=== PATIENT | female | born 1945 | race Caucasian/White ===

== ENCOUNTER 2017-03-04 11:49 | Emergency (ER) | payer MEDICARE, BC ==
[2017-03-04] MEDS ORDERED: Lidocaine/Epineph/Tetraca SOL* (LET solution) 4 ML BTL TOPICAL ONE (12:06)
--- NOTE | 2017-03-04 12:06 | UC ---
Skin Complaint HPI - HPI Summary HPI Summary: 71 year old female presents with complains of right anterior carmichael insect bite. - History of Current Complaint Chief Complaint: UCWounds Time Seen by Provider: 03/04/17 12:03 Stated Complaint: LUMP ON LEG Hx Last Menstrual Period: N/A - Allergy/Home Medications Allergies/Adverse Reactions: Allergies Allergy/AdvReac Type Severity Reaction Status Date / Time No Known Allergies Allergy Verified 03/04/17 11:59 Review of Systems Constitutional: Negative Skin: Rash Eyes: Negative ENT: Negative Respiratory: Negative Cardiovascular: Negative Gastrointestinal: Negative Genitourinary: Negative Motor: Negative Neurovascular: Negative Musculoskeletal: Negative Neurological: Negative Psychological: Negative All Other Systems Reviewed And Are Negative: Yes PMH/Surg Hx/FS Hx/Imm Hx Previously Healthy: Yes Other History Of: Negative For: HIV, Hepatitis B, Hepatitis C, Anticoagulant Therapy - Surgical History Surgical History: Yes Surgery Procedure, Year, and Place: hysterectomy, left side lump - Family History Known Family History: Negative: Cardiac Disease, Hypertension, Diabetes - Social History Alcohol Use: Rare Substance Use Type: None Smoking Status (MU): Never Smoked Tobacco Physical Exam Triage Information Reviewed: Yes Vital Signs: Initial Vital Signs Temp 37.0 C 03/04/17 11:56 Pulse 80 03/04/17 11:56 Resp 18 03/04/17 11:56 BP 147/91 03/04/17 11:56 Pulse Ox 98 03/04/17 11:56 Eye Exam: Normal ENT Exam: Normal Dental Exam: Normal Neck exam: Normal Neck: Positive: 1 Respiratory Exam: Normal Cardiovascular Exam: Normal Abdominal Exam: Normal Musculoskeletal Exam: Normal Neurological Exam: Normal Psychological Exam: Normal Skin Exam: Normal - right anterior carmichael Skin: Positive: rashes Course/Dx - Diagnoses Provider Diagnoses: insect bite right anterior carmichael Discharge - Discharge Plan Condition: Stable Disposition: HOME Prescriptions: DOXYcycline CAP(*) [DOXYcycline 100MG CAP(*)] 100 mg PO BID #56 cap Mupirocin 2% OINT* [Bactroban 2 % Oint*] 1 applic TOPICAL BID #1 tube Patient Education Materials: Lyme Disease (ED), Tick Bite (ED) Referrals: Aide Redman MD [Primary Care Provider] - If Needed
[2017-03-04 12:09] VITALS: BP 147/91
--- NOTE | 2017-03-06 08:25 | UC ---
Progress - Progress Note Progress Note: please inform pt of neg test for lyme. this first test does not rule out lyme. please continue meds and f/u with pcp for recheck in 7-14 days.
== END 2017-03-04 12:38 | disposition home or self-care (01) ==
LOC: UCEAST 11:49
DX: S80.861A Insect bite (nonvenomous), right lower leg, initial encounter (principal); W57.XXXA Bitten or stung by nonvenomous insect and other nonvenomous arthropods, initial encounter; Y93.9 Activity, unspecified; Y92.9 Unspecified place or not applicable
CPT/HCPCS: 86618; 99212; G0463

== ENCOUNTER 2018-09-05 07:47 | Day surgery (SDC) | payer MEDICARE, BC ==
[~2018-09-05 07:47] MED LIST: Buffered Lidocaine 1% SYRIN* 1 ML/SYRINGE INTRADERM ONE; Dexamethasone IV* 4 MG/ML 1 ML (4 MG) IV SLOW PU ONE; Dexamethasone IV* 4 MG/ML 1 ML (4 MG) ONE; Famotidine IV* 10 MG/ML 2 ML (20 mg) IV ONE; Famotidine IV* 10 MG/ML 2 ML (20 mg) ONE; HYDROcodone/ACETAMIN 5-325 MG* 1 TAB PO PRN; Ketorolac INJ* 30 MG/ML 1 ML VIAL IV PRN; Lactated Ringers 1000 ML Bag* 1,000 ML IV SCH; Lidocaine 1% INJ* 10 MG/ML 30 ML SDV ONE; Naloxone* 0.4 MG/ML 1 ML VIAL IV PRN; Ondansetron INJ* 2 MG/ML VIAL IV PRN; fentaNYL* 50 MCG/ML 2 ML VIAL (100 MCG VIAL) IV PRN
[2018-09-05] MEDS ORDERED: Midazolam* 1 MG/ML 2 ML VIAL (2 MG) ONE (09:35)
[2018-09-05] MEDS ORDERED: fentaNYL* 50 MCG/ML 2 ML VIAL (100 MCG VIAL) ONE (09:35)
[2018-09-05] MEDS ORDERED: Propofol* 10 MG/ML 20 ML BTL ONE (09:36)
[2018-09-05] MEDS ORDERED: Lidocaine 2% PF * 5 ML VIAL ONE (09:36)
[2018-09-05] MEDS ORDERED: methylPREDNISolone ACETATE 80* 80 MG/ML 1 ML VIAL ONE (10:26)
[2018-09-05 11:41] VITALS: BP 143/85
--- NOTE | 2018-09-05 14:01 | OP ---
DATE OF OPERATION: 09/05/18 [facility] DATE OF : 45 SURGEON: Sujatha Larson MD. BOTTLE HOP: BALTA Bhatt. ANESTHESIA: Local MAC. PRE-OP DIAGNOSES: 1. Left trigger thumb. 2. Left carpal tunnel syndrome. 3. Bilateral thumb CMC arthritis. POST-OP DIAGNOSES: 1. Left trigger thumb. 2. Left carpal tunnel syndrome. 3. Bilateral thumb CMC arthritis. OPERATIVE PROCEDURE: Bilateral thumb CMC injections, left trigger thumb release , and left carpal tunnel release. ESTIMATED BLOOD LOSS: Zero. TOURNIQUET TIME: Approximately 15 minutes. INDICATIONS FOR PROCEDURE: Lima Quiroz is a 72-year-old female who has numbness and tingling in the median nerve distribution of her left hand as well as triggering of her left thumb and painful arthritis of both thumb bases. She presents for bilateral thumb injections, left trigger thumb release, and left carpal tunnel release. DESCRIPTION OF PROCEDURE: The patient was brought to the operating room, was given a sedation anesthetic and a local infiltration of a total of 10 cc of 1% plain lidocaine in the palm of her left hand. Additionally, she was given injection of 80 mg of Depo-Medrol and 1 cc of 1% plain lidocaine at the CMC joint of both thumbs. Skin of her left hand and forearm was prepped and draped in the usual sterile fashion. Her hand and forearm were exsanguinated and the tourniquet elevated to 250 mmHg. A transverse incision was made centered over the A1 didi of the left thumb. We dissected through the subcutaneous tissue. The digital neurovascular bundles were retracted by the surgical training specialist, Afsaneh Weiss. The A1 didi was then incised longitudinally, completely releasing the flexor tendon which had a mild abrasion. The wound was irrigated and the skin edges were reapproximated with 4-0 nylon suture. Next, a longitudinal incision was made in the palm in line with the ring finger. We dissected through the subcutaneous tissue down to the transverse carpal ligament. The ligament was divided sharply with a knife and then more proximally with the scissors. The nerve was dissected free from surrounding tissue and there was an area of moderate compression of the mid portion of the ligament. The wound was irrigated and the skin edges reapproximated with 4-0 nylon suture. The wound was dressed with Xeroform, 4x4, Webril, and an Monty wrap. The patient tolerated the procedure well, was brought to the recovery room in good condition. [id number]/[facility] #: [id number] MTDBrea
== END 2018-09-05 12:11 | disposition home or self-care (01) ==
LOC: OREAST 07:47
PROVIDERS: ATTEND Orthopaedic Surgery
DX: G56.02 Carpal tunnel syndrome, left upper limb (principal); M65.312 Trigger thumb, left thumb; M18.0 Bilateral primary osteoarthritis of first carpometacarpal joints; I10 Essential (primary) hypertension; E78.5 Hyperlipidemia, unspecified; F41.9 Anxiety disorder, unspecified
CPT/HCPCS: J1040; J1100; J2250; J2704; J3010

== ENCOUNTER 2019-01-09 09:54 | Day surgery (SDC) | payer MEDICARE, BC ==
[~2019-01-09 09:54] MED LIST changes: +Acetaminophen TAB* 325 MG PO PRN; -Dexamethasone IV* 4 MG/ML 1 ML (4 MG) IV SLOW PU ONE; -Dexamethasone IV* 4 MG/ML 1 ML (4 MG) ONE; -Famotidine IV* 10 MG/ML 2 ML (20 mg) IV ONE; -Famotidine IV* 10 MG/ML 2 ML (20 mg) ONE; -HYDROcodone/ACETAMIN 5-325 MG* 1 TAB PO PRN; -Ketorolac INJ* 30 MG/ML 1 ML VIAL IV PRN; -Lactated Ringers 1000 ML Bag* 1,000 ML IV SCH; -Lidocaine 1% INJ* 10 MG/ML 30 ML SDV ONE; -Naloxone* 0.4 MG/ML 1 ML VIAL IV PRN; -Ondansetron INJ* 2 MG/ML VIAL IV PRN; -fentaNYL* 50 MCG/ML 2 ML VIAL (100 MCG VIAL) IV PRN
[2019-01-09] MEDS ORDERED: Lidocaine 1%** 5 ML VIAL ONE (11:35)
[2019-01-09] MEDS ORDERED: Ketorolac 0.5% OPHTH (NF) 0.5 % 5 ML BTL ONE (11:35)
[2019-01-09] MEDS ORDERED: Tetracaine 0.5% OPTH.SOL 4 ML* 1 DROP BTL ONE (11:35)
[2019-01-09] MEDS ORDERED: Tropicamide 1% OPTH.SOL* BTL ONE (11:35)
[2019-01-09] MEDS ORDERED: Neomycin/Polymy/Dex OPHTH.OIN* 3.5 GM ONE (11:35)
[2019-01-09] MEDS ORDERED: Cyclopentolate 1% OPTH.SOL* 2 ML BTL ONE (11:35)
[2019-01-09] MEDS ORDERED: Phenylephrine OPHTH SOL 2.5%* 2 ML ONE (11:35)
[2019-01-09] MEDS ORDERED: Midazolam* 1 MG/ML 2 ML VIAL (2 MG) ONE (12:12)
[2019-01-09] MEDS ORDERED: Lidocaine 2% PF * 5 ML VIAL ONE (12:31)
[2019-01-09] MEDS ORDERED: Propofol* 10 MG/ML 20 ML BTL ONE (12:31)
--- NOTE | 2019-01-09 13:08 | OP ---
OPERATIVE REPORT: DATE OF OPERATION: 01/09/19 DATE OF : 45 SURGEON: Dr. Grzegorz Cao. DIE CLEANER: None. ANESTHESIA: Topical with intravenous sedation. PRE-OP DIAGNOSIS: Cataract, right eye. POST-OP DIAGNOSIS: Cataract, right eye. OPERATIVE PROCEDURE: Phacoemulsification and cataract extraction with posterior chamber intraocular lens implant, right eye. COMPLICATIONS: None. BLOOD LOSS: None. OPERATIVE FINDINGS: The patient was brought to the operating room and received a small amount of int ravenous sedation. A drop of tetracaine was placed in her right eye. She was prepped and draped in the usual sterile fashion for ophthalmic surgery and attention was directed to the right eye where a speculum was placed. A paracentesis was created at the 11 o'clock position and 0.1 cc of 1 percent p reservative-free Lidocaine was injected into the anterior chamber followed by DisCoVisc. The eye was digitally stabilized while a 2.75 mm keratome was used to create a triplanar clear corneal incision at the 9 o'clock position. A continuous curvilinear capsulorrhexis was created with a cystotome and Utrata forceps. BSS on a cannula was used to hydrodissect the lens from the capsule. Phacoemulsific ation was performed in a [id number] technique to create four fragments which were removed. R esidual cortical material was removed with irrigation and aspiration. DisCoVisc was used to inflate t he capsular bag and an AU00T0 21.5 diopter lens was folded and inserted into the capsular bag. DisCo Visc was removed using irrigation and aspiration. BSS on a cannula was used to hydrate the corneal s troma and seal the wound. At the end of the case the pupil was round and the lens was centered. The eye was of normal pressure and the wound was water tight. The speculum was removed and topical Maxit rol ointment was placed on the surface of the eye. The eye was closed, patched and shielded and the patient was sent to the recovery room in stable condition with post operative instructions and follow -up appointment given. [id number]/[facility] #: [id number]
[2019-01-09 13:43] VITALS: BP 126/91
== END 2019-01-09 13:09 | disposition home or self-care (01) ==
LOC: OREAST 09:54
PROVIDERS: ATTEND Ophthalmology
DX: H25.11 Age-related nuclear cataract, right eye (principal); I10 Essential (primary) hypertension; J45.909 Unspecified asthma, uncomplicated; E78.00 Pure hypercholesterolemia, unspecified
CPT/HCPCS: A9270-GY; J2250; J2704; V2632

== ENCOUNTER 2019-01-16 11:02 | Day surgery (SDC) | payer MEDICARE, BC ==
[2019-01-16] MEDS ORDERED: fentaNYL* 50 MCG/ML 2 ML VIAL (100 MCG VIAL) ONE ×2 (12:29→13:05)
[2019-01-16] MEDS ORDERED: Midazolam* 1 MG/ML 2 ML VIAL (2 MG) ONE ×2 (12:30→13:05)
[2019-01-16 13:51] VITALS: BP 124/54
--- NOTE | 2019-01-16 14:23 | OP ---
DATE OF OPERATION: 01/16/19 [facility] DATE OF : 45 SURGEON: Dr. Grzegorz Cao. TAKE DOWN INSPECTOR: None. ANESTHESIA: Topical with intravenous sedation. PRE-OP DIAGNOSIS: Cataract, left eye. POST-OP DIAGNOSIS: Cataract, left eye. OPERATIVE PROCEDURE: Phacoemulsification and cataract extraction with posterior chamber intraocular lens implant, left eye. COMPLICATIONS: None. BLOOD LOSS: None. DESCRIPTION OF PROCEDURE: The patient was brought to the operating room and received a small amount of intravenous sedation. A drop of Tetracaine was placed in her left eye. She was prepped and draped in the usual sterile fashion for ophthalmic surgery and attention was directed to the left eye where a speculum was placed. A paracentesis was created at the 5 o'clock position and 0.1 cc of 1 percent preservative-free Lidocaine was injected into the anterior chamber followed by DisCoVisc. The eye was digitally stabilized while a 2.75 mm keratome was used to create a triplanar clear corneal incision at the 3 o'clock position. A continuous curvilinear capsulorrhexis was created with a cystotome and Utrata forceps. BSS on a cannula was used to hydrodissect the lens from the capsule. Phacoemulsification was performed in a divide-and- conquer technique to create four fragments which were removed. Residual cortical material was removed with irrigation and aspiration. DisCoVisc was used to inflate the capsular bag and an AU00T0 21.5 diopter lens was folded and inserted into the capsular bag. DisCoVisc was removed using irrigation and aspiration. BSS on a cannula was used to hydrate the corneal stroma and seal the wound. At the end of the case the pupil was round and the lens was centered. The eye was of normal pressure and the wound was water tight. The speculum was removed and topical Maxitrol ointment was placed on the surface of the eye. The eye was closed, patched and shielded and the patient was sent to the recovery room in stable condition with post operative instructions and follow-up appointment given. [id number]/[facility] #: [id number] MTDBrea
[2019-01-16] MEDS ORDERED: Tetracaine 0.5% OPTH.SOL 4 ML* 1 DROP BTL ONE (14:29)
[2019-01-16] MEDS ORDERED: Tropicamide 1% OPTH.SOL* BTL ONE (14:29)
[2019-01-16] MEDS ORDERED: Ketorolac 0.5% OPHTH (NF) 0.5 % 5 ML BTL ONE (14:29)
[2019-01-16] MEDS ORDERED: Lidocaine 1% MPF ** 5 ML VIAL ONE (14:29)
[2019-01-16] MEDS ORDERED: Neomycin/Polymy/Dex OPHTH.OIN* 3.5 GM ONE (14:29)
[2019-01-16] MEDS ORDERED: Cyclopentolate 1% OPTH.SOL* 2 ML BTL ONE (14:29)
[2019-01-16] MEDS ORDERED: Phenylephrine OPHTH SOL 2.5%* 2 ML ONE (14:29)
== END 2019-01-16 13:40 | disposition home or self-care (01) ==
LOC: OREAST 11:02
PROVIDERS: ATTEND Ophthalmology
DX: H25.12 Age-related nuclear cataract, left eye (principal); I10 Essential (primary) hypertension; J45.909 Unspecified asthma, uncomplicated; E78.5 Hyperlipidemia, unspecified
CPT/HCPCS: A9270-GY; J2250; J3010; V2632